=== PATIENT | female | born 1995 | race African-American/Black ===

== ENCOUNTER 2017-04-05 15:09 | Emergency (ER) | payer OTHER ==
[~2017-04-05] VITALS: Ht 172.7 cm; Wt 92.4 kg
[2017-04-05 15:18] VITALS: TEMP 36.9; Ht 172.7 cm; Wt 92.4 kg
[2017-04-05] MEDS ORDERED: KETOROLAC TROMETHAMINE 60 MG/2 ML VIAL IM STA (15:38)
[2017-04-05] MEDS ORDERED: DEXAMETHASONE **PF** INJ 10 MG/ML VIAL IM ONE (15:45)
[2017-04-05 16:36] VITALS: BP 143/98; PULSE 68; O2SAT 98
--- NOTE | 2017-04-05 21:34 | EMERGENCY ROOM VISIT NOTE ---
History First contact with patient: 15:30 Chief Complaint: SORETHROAT Stated Complaint: SWOLLEN NECK/THROAT, HURTS TO MOVE History of Present Illness The patient is a 21 year old female who presents to the Emergency Room with complaints of sore throat and difficulty swallowing. The patient reports that she felt fine last night. She had a sore throat upon awakening this morning. She denies any runny nose, congestion or cough. The patient reports a history of recurrent strep throat as a child, but then suddenly stopped getting the infections. She therefore did not have to undergo a tonsillectomy. The patient denies any other recent sick contacts. She has not taken any Motrin or Tylenol because it hurts too much to swallow. She rates her discomfort a 6 out of 10. Review of Systems 10 system review was performed and was negative except for pertinent positives and negatives as indicated in history of present illness Past Medical/Surgical History Medical Problems: (1) No significant past medical history Surgical Problems: (1) No history of previous surgery Family History FH: cancer FH: diabetes mellitus FH: heart disease FH: hypertension Social History Smoking Status: Current Some Day Smoker Alcohol Use: occasionally Marital Status: single Housing Status: lives with roommate Occupation Status: Sunglass student Current/Historical Medications No Active Prescriptions or Reported Meds Physical Exam Vital Signs Date Time Temp Pulse Resp B/P (MAP) Pulse Ox O2 Delivery O2 Flow Rate FiO2 04/05/17 16:36 68 18 143/98 98 04/05/17 15:21 Room Air 04/05/17 15:18 36.9 83 16 147/100 99 Room Air Physical Exam CONSTITUTIONAL: Healthy and well nourished. Alert and oriented X 3 with positive affect. She appears in mild discomfort on exam. HEENT: Normocephalic, atraumatic. Pupils equal, round and reactive. Ears and nares are clear. No obvious facial edema or scleral icterus/conjunctival injection. OROPHARYNX: Patient has erythema of the tonsillar arches and soft palate without any significant exudate formation. The patient has mild symmetric tonsillar hypertrophy. No uvular deviation. Negative trismus. No vesicular oral lesions noted. LYMPHATICS: No posterior or anterior cervical chain adenopathy appreciated. NECK: Full active range of motion without discomfort. RESPIRATORY: Clear to auscultation bilaterally with no wheezing, crackles, rhonchi or stridor. CARDIOVASCULAR: Regular rate and rhythm with no murmurs, rubs or gallops. MUSCULOSKELETAL: Full range of motion of all joints without discomfort. INTEGUMENTARY: No rash or other significant dermatologic conditions noted. NEUROLOGIC: No focal neurologic deficits noted. Medical Decision & Procedures Laboratory Results Rapid strep was performed and was negative. Strep cultures are pending. Medications Administered Medications (Trade) Dose Ordered Sig/Adri Route Start Time Stop Time Status Last Admin Dose Admin Ketorolac Tromethamine (Toradol Inj) 60 mg NOW STAT IM 04/05/17 15:38 04/05/17 15:39 DC 04/05/17 16:05 60 MG Dexamethasone Sodium Phosphate (Dexamethasone Inj Pf) 10 mg NOW ONCE IM 04/05/17 15:45 04/05/17 15:46 DC 04/05/17 16:05 10 MG ED Course Patient history and physical exam were performed. Nurse's notes were reviewed. Vital signs were reviewed, showing an elevated blood pressure 147/100. The patient is afebrile. The patient did request something for her pain, however reports significant difficulty with swallowing. The patient was therefore administered Toradol 60 mg and Decadron 10 mg IM. Rapid strep was performed and was negative. Strep cultures are pending. The patient was advised that we will contact her with any positive strep cultures. The patient was encouraged to alternate ibuprofen and Tylenol as needed for pain. She was instructed to return to the emergency department for any progressively worsening pain, including tonsillar swelling. Trismus symptoms were also reviewed with the patient. The patient was advised that her symptoms should improve within the next week. If she has any persistent symptoms, she may want to follow-up with [facility] or her family doctor over spring to rule out mononucleosis. She is also welcome to return to the emergency department for any progressively worsening symptoms. The patient was happy with plan of care, voiced her standing of all discharge instructions, and rated her discomfort a 2 out of 10 at the conclusion of my exam. Medical Decision Blood Pressure Screening Patient's blood pressure: Normal blood pressure Impression Primary Impression: Acute pharyngitis Departure Information Prescriptions No Active Prescriptions or Reported Meds Referrals No Doctor, Assigned (PCP) Patient Instructions [facility] Problem Qualifiers Primary Impression: Acute pharyngitis Pharyngitis/tonsillitis etiology: unspecified etiology Qualified Codes: J02.9 - Acute pharyngitis, unspecified
== END 2017-04-05 17:19 | disposition home or self-care (01) ==
LOC: C.EDB 15:11 → C.EDD 16:36
DX: J02.9 Acute pharyngitis, unspecified (principal); F17.200 Nicotine dependence, unspecified, uncomplicated; Z83.3 Family history of diabetes mellitus; Z82.49 Family history of ischemic heart disease and other diseases of the circulatory system